=== PATIENT | female | born 1940 | race Caucasian/White ===

== ENCOUNTER 2021-03-18 16:03 | Inpatient (IN) | payer MEDICARE ==
[2021-03-18 16:54] LABS: #Eosinphils 0.1 10x3/uL (0.0-0.5); #Monocytes 1.1 10x3/uL (0.0-1.1); #Neutrophils 6.1 10x3/uL (1.5-8.4); %Basophils 0.2 % (0.0-2.0); %Eosinophils 1.6 % (0.0-6.0); %Lymphocytes 18.1 % (18.0-47.0); %Monocytes 11.7 % (0.0-10.0); %Neutrophils 68.2 % (40.0-75.0); Hemoglobin 11.8 g/dL (12.0-15.5); Mean Corpuscular HGB CONC 33.1 g/dL (32.0-36.0); Mean Corpuscular Hemoglobin 30.6 pg (27.0-33.0); Mean Corpuscular Volume 92.7 fl (81.6-98.3); Mean Platelet Volume 10.5 fl (7.4-10.4); Platelet Count 249 10x3/uL (150-450); RBC Distribution Width 12.5 % (11.5-14.5); Red Blood Cell (RBC) Count 3.85 10x6/uL (3.90-5.03)
[2021-03-18 16:57] LABS: ALT (SGPT) 13 U/L (8-55); AST (SGOT) 15 U/L (5-34); Alkaline Phosphatase 81 U/L (40-110); Anion Gap 15 mmol/L (10-20); BUN (Urea Nitrogen) 17 mg/dL (9.8-20.1); Bilirubin, Total 1.5 mg/dL (0.2-1.2); Calc. Creatinine Clearance 0 mL/min (70-130); Calcium 9.7 mg/dL (7.8-10.44); Carbon Dioxide 22 mmol/L (23-31); Chloride 105 mmol/L (98-107); Globulin 3.3 g/dL (2.4-3.5); Glucose 110 mg/dL (83-110); Protein, Total 7.3 g/dL (5.8-8.1); Sodium 138 mmol/L (136-145)
[2021-03-18] MEDS ORDERED: Morphine 4 MG/ML VIAL ONE (17:02)
[2021-03-18 17:08] LABS: Lipase 2703 U/L (8-78)
[2021-03-18 17:22] LABS: Bilirubin Neg (Negative); Blood, Urine 50 (Negative); Clarity Clear (Clear); Glucose, Urine (Dipstick) Normal (Negative); Ketone, Urine 15 mg/dL (Negative); Leukocyte 100 (Negative); Nitrite Negative (Negative); Protein, Urine (Dipstick) 15 mg/dl (Neg-Trace); Urobilinogen Normal mg/dL (Less than 2)
[2021-03-18 17:33] LABS: Bacteria/HPF 4+ HPF (None Seen); Mucous/LPF 2+ LPF (<2+); RBC/HPF 0-3 HPF (0-3); Squamous Epithelial 0-3 HPF (0-3); White Blood Cell Cast 0-3 LPF (None Seen)
[2021-03-18] MEDS ORDERED: Promethazine HCl 25 MG/ML VIAL ONE (18:16)
[2021-03-18] MEDS ORDERED: cefTRIAXone\\ROCEPHIN 2 GM VIAL ONE (18:58)
[2021-03-18] MEDS ORDERED: HYDROcodone/Acetaminophen 5/325 mg Tablet PO PRN (20:40)
[2021-03-18] MEDS ORDERED: Senokot S 8.6-50 MG TAB PO PRN (20:40)
[2021-03-18] MEDS ORDERED: Ondansetron PF 4 MG/2 ML Vial IVP PRN (20:40)
[2021-03-18] MEDS ORDERED: Calcium Carbonate 500 MG ChewTAB PO PRN (20:40)
[2021-03-18] MEDS ORDERED: Guaifenesin DM 100-10/5 ML UDCUP PO PRN (20:40)
[2021-03-18] MEDS ORDERED: Zolpidem Tartrate 5 MG TAB PO PRN (20:40)
[2021-03-18] MEDS ORDERED: Morphine 2 MG/ML VIAL SLOW IVP PRN (20:42)
[2021-03-18 22:03] VITALS: BMI 36.1
[2021-03-18] MEDS: Acetaminophen 325 MG TAB PO PRN (23:37)
[2021-03-18] MEDS: Flecainide 50 MG TAB PO SCH (23:41)
[2021-03-18] MEDS: Amlodipine 5 MG TAB PO SCH (23:42)
[2021-03-18] MEDS: Apixaban 5 MG TAB PO SCH (23:43)
[2021-03-18] MEDS: Lisinopril 20 MG TAB PO SCH (23:43)
[2021-03-18] MEDS: Simvastatin 10 MG TAB PO SCH (23:44)
[2021-03-18] MEDS: Lactated Ringer's 1,000 ML IV SCH (23:59)
[2021-03-19] MEDS: Lactated Ringer's 1,000 ML IV SCH ×3 (05:26→21:27)
[2021-03-19 05:40] LABS: #Eosinphils 0.3 10x3/uL (0.0-0.5); #Neutrophils 4.7 10x3/uL (1.5-8.4); %Basophils 0.4 % (0.0-2.0); %Eosinophils 3.2 % (0.0-6.0); %Lymphocytes 24.1 % (18.0-47.0); %Monocytes 12.2 % (0.0-10.0); %Neutrophils 59.8 % (40.0-75.0); Mean Corpuscular HGB CONC 32.9 g/dL (32.0-36.0); Mean Corpuscular Hemoglobin 30.6 pg (27.0-33.0); Mean Platelet Volume 10.6 fl (7.4-10.4); Platelet Count 245 10x3/uL (150-450); RBC Distribution Width 12.7 % (11.5-14.5); Red Blood Cell (RBC) Count 3.59 10x6/uL (3.90-5.03); White Blood Cell (WBC) Count 7.8 10x3/uL (3.5-10.5)
[2021-03-19 05:59] LABS: ALT (SGPT) 11 U/L (8-55); AST (SGOT) 13 U/L (5-34); Albumin 3.5 g/dL (3.4-4.8); Alkaline Phosphatase 72 U/L (40-110); Anion Gap 13 mmol/L (10-20); BUN (Urea Nitrogen) 13 mg/dL (9.8-20.1); Bilirubin, Total 0.9 mg/dL (0.2-1.2); Calc. Creatinine Clearance 90 mL/min (70-130); Calcium 9.1 mg/dL (7.8-10.44); Carbon Dioxide 23 mmol/L (23-31); Cardiac Risk 3.2 (Less than 4.5); Chloride 107 mmol/L (98-107); Cholesterol 151 mg/dl (< 200 Desired); Globulin 3.1 g/dL (2.4-3.5); Glucose 100 mg/dL (83-110); HDL Cholesterol 47 mg/dL (>60 Neg Risk); LDL Cholesterol, Calculated 87 mg/dL; Lipase 948 U/L (8-78); Potassium 3.8 mmol/L (3.5-5.1); Protein, Total 6.6 g/dL (5.8-8.1); Sodium 139 mmol/L (136-145); Triglycerides 87 mg/dL (Less than 150)
[2021-03-19] MEDS: Apixaban 5 MG TAB PO SCH ×2 (08:39→21:29)
[2021-03-19] MEDS: Flecainide 50 MG TAB PO SCH ×2 (08:39→21:28)
[2021-03-19] MEDS: Lisinopril 20 MG TAB PO SCH ×2 (08:39→21:33)
[2021-03-19] MEDS: Cholecalciferol 1,000 UNITS (25 MCG) TAB PO SCH (08:39)
[2021-03-19] MEDS: Amlodipine 5 MG TAB PO SCH ×2 (08:39→21:33)
[2021-03-19] MEDS: Polyethylene Glycol 3350 17 GM Packet PO SCH (08:40)
[2021-03-19] MEDS ORDERED: Acetaminophen/Codeine 30-300mg Tablet PO PRN (08:59)
[2021-03-19] MEDS: cefTRIAXone\\ROCEPHIN 1 GM in Sodium Chloride 0.9% 100 ML IVPB SCH (18:06)
[2021-03-19] MEDS: Simvastatin 10 MG TAB PO SCH (21:29)
[2021-03-20 05:07] LABS: #Eosinphils 0.4 10x3/uL (0.0-0.5); #Monocytes 0.7 10x3/uL (0.0-1.1); #Neutrophils 2.8 10x3/uL (1.5-8.4); %Basophils 0.7 % (0.0-2.0); %Eosinophils 6.7 % (0.0-6.0); %Lymphocytes 29.2 % (18.0-47.0); %Monocytes 13.2 % (0.0-10.0); Hemoglobin 10.4 g/dL (12.0-15.5); Mean Corpuscular HGB CONC 33.8 g/dL (32.0-36.0); Mean Corpuscular Volume 91.7 fl (81.6-98.3); Mean Platelet Volume 10.5 fl (7.4-10.4); Platelet Count 208 10x3/uL (150-450); RBC Distribution Width 12.5 % (11.5-14.5); Red Blood Cell (RBC) Count 3.36 10x6/uL (3.90-5.03); White Blood Cell (WBC) Count 5.5 10x3/uL (3.5-10.5)
[2021-03-20 05:45] LABS: ALT (SGPT) 10 U/L (8-55); AST (SGOT) 16 U/L (5-34); Albumin 3.2 g/dL (3.4-4.8); Alkaline Phosphatase 64 U/L (40-110); Anion Gap 16 mmol/L (10-20); BUN (Urea Nitrogen) 12 mg/dL (9.8-20.1); Bilirubin, Total 0.8 mg/dL (0.2-1.2); Calc. Creatinine Clearance 94 mL/min (70-130); Calcium 9.1 mg/dL (7.8-10.44); Carbon Dioxide 19 mmol/L (23-31); Chloride 109 mmol/L (98-107); Globulin 2.6 g/dL (2.4-3.5); Glucose 72 mg/dL (83-110); Lipase 72 U/L (8-78); Magnesium 1.9 mg/dL (1.6-2.6); Potassium 3.7 mmol/L (3.5-5.1); Protein, Total 5.8 g/dL (5.8-8.1); Sodium 140 mmol/L (136-145)
[2021-03-20] MEDS: Lactated Ringer's 1,000 ML IV SCH (08:32)
[2021-03-20] MEDS: Amlodipine 5 MG TAB PO SCH ×2 (10:02→21:22)
[2021-03-20] MEDS: Lisinopril 20 MG TAB PO SCH ×2 (10:02→21:22)
[2021-03-20] MEDS: Apixaban 5 MG TAB PO SCH ×2 (10:02→21:22)
[2021-03-20] MEDS: Polyethylene Glycol 3350 17 GM Packet PO SCH (10:03)
[2021-03-20] MEDS: Flecainide 50 MG TAB PO SCH ×2 (10:03→21:22)
[2021-03-20] MEDS: Cholecalciferol 1,000 UNITS (25 MCG) TAB PO SCH (10:03)
[2021-03-20] MEDS: cefTRIAXone\\ROCEPHIN 1 GM in Sodium Chloride 0.9% 100 ML IVPB SCH (18:44)
[2021-03-20] MEDS: Simvastatin 10 MG TAB PO SCH (21:22)
[2021-03-21 04:56] LABS: #Eosinphils 0.4 10x3/uL (0.0-0.5); #Monocytes 0.9 10x3/uL (0.0-1.1); #Neutrophils 3.2 10x3/uL (1.5-8.4); %Basophils 0.6 % (0.0-2.0); %Eosinophils 5.4 % (0.0-6.0); %Lymphocytes 32.1 % (18.0-47.0); %Monocytes 13.2 % (0.0-10.0); %Neutrophils 48.4 % (40.0-75.0); Hemoglobin 11.1 g/dL (12.0-15.5); Mean Corpuscular HGB CONC 33.1 g/dL (32.0-36.0); Mean Corpuscular Hemoglobin 30.6 pg (27.0-33.0); Mean Corpuscular Volume 92.3 fl (81.6-98.3); Mean Platelet Volume 10.2 fl (7.4-10.4); Platelet Count 247 10x3/uL (150-450); RBC Distribution Width 12.3 % (11.5-14.5); Red Blood Cell (RBC) Count 3.63 10x6/uL (3.90-5.03); White Blood Cell (WBC) Count 6.6 10x3/uL (3.5-10.5)
[2021-03-21] MEDS: Polyethylene Glycol 3350 17 GM Packet PO SCH (08:38)
[2021-03-21] MEDS: Amlodipine 5 MG TAB PO SCH ×2 (08:38→20:42)
[2021-03-21] MEDS: Flecainide 50 MG TAB PO SCH ×2 (08:38→20:41)
[2021-03-21] MEDS: Apixaban 5 MG TAB PO SCH (08:38)
[2021-03-21] MEDS: Cholecalciferol 1,000 UNITS (25 MCG) TAB PO SCH (08:38)
[2021-03-21] MEDS: Lisinopril 20 MG TAB PO SCH ×2 (08:38→20:41)
[2021-03-21] MEDS: cefTRIAXone\\ROCEPHIN 1 GM in Sodium Chloride 0.9% 100 ML IVPB SCH (19:00)
[2021-03-21] MEDS: Simvastatin 10 MG TAB PO SCH (20:41)
[2021-03-21] MEDS: D5 1/2 NS w/20 mEq KCL 1,000 ML IV SCH (20:43)
[2021-03-22] MEDS: Amlodipine 5 MG TAB PO SCH ×2 (10:27→22:21)
[2021-03-22] MEDS: Lisinopril 20 MG TAB PO SCH ×2 (10:27→22:21)
[2021-03-22] MEDS: Flecainide 50 MG TAB PO SCH ×2 (10:27→22:20)
[2021-03-22] MEDS: Cholecalciferol 1,000 UNITS (25 MCG) TAB PO SCH (10:28)
[2021-03-22 16:48] LABS: SARS-CoV-2 NAA Rapid Test Not Detected (NotDetected)
[2021-03-22] MEDS: cefTRIAXone\\ROCEPHIN 1 GM in Sodium Chloride 0.9% 100 ML IVPB SCH (17:23)
[2021-03-22] MEDS: D5 1/2 NS w/20 mEq KCL 1,000 ML IV SCH (17:31)
[2021-03-22] MEDS ORDERED: Bupivacaine 0.25% HCL 30 ML VIAL ONE (18:44)
[2021-03-22] MEDS ORDERED: Iopamidol 30 ML ONE (18:44)
[2021-03-22] MEDS ORDERED: EPINEPHrine 1 MG/ML AMP ONE (18:44)
[2021-03-22] MEDS ORDERED: PROPOFOL 20 ML ONE (18:58)
[2021-03-22] MEDS ORDERED: Fentanyl 100 MCG/2 ML VIAL ONE ×2 (19:17→20:31)
[2021-03-22] MEDS ORDERED: Ondansetron PF 4 MG/2 ML Vial ONE (19:34)
[2021-03-22] MEDS ORDERED: Dexamethasone 20 MG/5 ML VIAL ONE (19:35)
[2021-03-22] MEDS ORDERED: Glycopyrrolate 0.2 MG/ML 5 ML SYRINGE ONE (20:06)
[2021-03-22] MEDS: Simvastatin 10 MG TAB PO SCH (22:20)
[2021-03-23] MEDS: D5 1/2 NS w/20 mEq KCL 1,000 ML IV SCH ×2 (01:01→12:34)
[2021-03-23 08:29] LABS: #Monocytes 0.3 10x3/uL (0.0-1.1); #Neutrophils 6.1 10x3/uL (1.5-8.4); %Basophils 0.3 % (0.0-2.0); %Lymphocytes 15.3 % (18.0-47.0); %Monocytes 4.1 % (0.0-10.0); %Neutrophils 79.8 % (40.0-75.0); Hemoglobin 12.1 g/dL (12.0-15.5); Mean Corpuscular HGB CONC 34.6 g/dL (32.0-36.0); Mean Corpuscular Hemoglobin 30.9 pg (27.0-33.0); Mean Corpuscular Volume 89.5 fl (81.6-98.3); Mean Platelet Volume 10.1 fl (7.4-10.4); Platelet Count 275 10x3/uL (150-450); RBC Distribution Width 12.4 % (11.5-14.5); Red Blood Cell (RBC) Count 3.91 10x6/uL (3.90-5.03); White Blood Cell (WBC) Count 7.6 10x3/uL (3.5-10.5)
[2021-03-23] MEDS: Apixaban 5 MG TAB PO SCH (08:52)
[2021-03-23] MEDS: Cholecalciferol 1,000 UNITS (25 MCG) TAB PO SCH (08:52)
[2021-03-23] MEDS: Amlodipine 5 MG TAB PO SCH (08:52)
[2021-03-23] MEDS: Lisinopril 20 MG TAB PO SCH (08:52)
[2021-03-23] MEDS: Flecainide 50 MG TAB PO SCH (08:52)
[2021-03-23 08:55] LABS: Anion Gap 16 mmol/L (10-20); BUN (Urea Nitrogen) 10 mg/dL (9.8-20.1); Calc. Creatinine Clearance 91 mL/min (70-130); Calcium 9.4 mg/dL (7.8-10.44); Carbon Dioxide 22 mmol/L (23-31); Chloride 105 mmol/L (98-107); Glucose 145 mg/dL (83-110); Sodium 139 mmol/L (136-145)
[2021-03-23] MEDS: Acetaminophen 325 MG TAB PO PRN (10:43)
[2021-03-23 16:29] VITALS: BP 95/50; TEMP 98.1
== END 2021-03-23 16:51 | disposition home or self-care (01) | DRG 418 ==
LOC: CSHERS 16:03 → CSHTELE 20:42
PROVIDERS: ADMIT Student in an Organized Health Care Education/Training Program; ATTEND Hospitalist
PROC: 0FT44ZZ Resection of Gallbladder, Percutaneous Endoscopic Approach (ICD-10-PCS; principal; 2021-03-22)
PROC: BF532Z0 Other Imaging of Gallbladder and Bile Ducts using Fluorescing Agent, Intraoperative (ICD-10-PCS; 2021-03-22)
DX: K85.10 Biliary acute pancreatitis without necrosis or infection (principal); N39.0 Urinary tract infection, site not specified; K80.20 Calculus of gallbladder without cholecystitis without obstruction; K86.9 Disease of pancreas, unspecified; Z88.1 Allergy status to other antibiotic agents; Z88.2 Allergy status to sulfonamides; Z88.8 Allergy status to other drugs, medicaments and biological substances; I48.0 Paroxysmal atrial fibrillation; K21.9 Gastro-esophageal reflux disease without esophagitis; E78.5 Hyperlipidemia, unspecified; K57.90 Diverticulosis of intestine, part unspecified, without perforation or abscess without bleeding; N18.31 Chronic kidney disease, stage 3a; I12.9 Hypertensive chronic kidney disease with stage 1 through stage 4 chronic kidney disease, or unspecified chronic kidney disease; Z20.822 Contact with and (suspected) exposure to COVID-19
CPT/HCPCS: 47532; 74177; 74183; 80048; 80053; 80061; 81003; 81015; 83690; 83735; 85025; 87077; 87086; 87186; 87324; 87449; 88304; 93005; 93010; 96365; 96367; 96375; J0171; J0696; J1100; J2270; J2405; J2550; J2704; J3010; J3480; J3490; J7120; Q9967; S0020; U0002; U0003; U0005

== ENCOUNTER 2022-05-10 14:25 | Outpatient (CLI) | payer MEDICARE | END 2022-05-10 14:26 | disposition home or self-care (01) | LOC: CSHMAMMO 14:25 | PROVIDERS: ATTEND Family Medicine | DX: Z12.31 Encounter for screening mammogram for malignant neoplasm of breast (principal); Z80.3 Family history of malignant neoplasm of breast | CPT/HCPCS: 77063; 77067 ==